=== PATIENT | male | born 1995 | race Caucasian/White ===

== ENCOUNTER 2020-02-08 14:22 | Emergency (ER) | payer OTHER ==
[~2020-02-08] VITALS: Ht 182.9 cm; Wt 133.8 kg
[2020-02-08] MEDS ORDERED: COZAAR100 MG (14:30)
[2020-02-08] MEDS ORDERED: STRIBILD TABLE1 EACH PO (15:47)
== END 2020-02-08 16:43 | disposition home or self-care (01) ==
LOC: ER 14:22
DX: S61.247A Puncture wound with foreign body of left little finger without damage to nail, initial encounter (principal); W46.0XXA Contact with hypodermic needle, initial encounter; Y93.89 Activity, other specified; Y92.69 Other specified industrial and construction area as the place of occurrence of the external cause; Y99.8 Other external cause status

== ENCOUNTER → 2020-07-25 | Outpatient (CLI) | payer OTHER ==
[~2020-07-25] MED LIST: COZAAR100 MG; STRIBILD TABLE1 EACH PO
== END | disposition home or self-care (01) ==
LOC: PPH VACUNA 07:02
DX: Z23 Encounter for immunization (principal)